=== PATIENT | male | born 1975 | race Caucasian/White ===

== ENCOUNTER 2022-07-08 19:22 | Emergency (ER) | payer BC ==
[2022-07-08] MEDS ORDERED: SODIUM CHLORIDE 0.9% 1,000 ML IV STA (19:50)
[2022-07-08 19:52] VITALS: TEMP 98.2
--- NOTE | 2022-07-08 20:17 | CT ---
EXAMINATION TYPE: CT abdomen pelvis wo con DATE OF EXAM: 07/08/2022 COMPARISON: None HISTORY: Left flank pain CT DLP: 1326.4 mGycm Automated exposure control for dose reduction was used. Images obtained from the diaphragm to the floor the pelvis with no contrast. The lung bases are clear. No pleural effusion. Heart size is normal. No pericardial effusion. Liver spleen appear intact. There are clips from gastric bariatric surgery. No pancreatic mass. Gallb ladder is intact. There is some increased density in the dependent gallbladder that could be small ga llstones. The bile ducts are not dilated. There is no adrenal mass. The left kidney is slightly enlarged. There is left-sided mild hydronephros is. There are multiple left-sided renal calculi measuring up to 11 mm. There is mild left-sided periu reteral edema. There is obstructing calculus in the lower left ureter that measures 5 mm. The bladder is almost empty. No evidence of a bladder mass. Right kidney shows no sign of obstruction. There is a 4 mm calculus in the posterior right kidney. No retroperitoneal adenopathy. No inguinal hernia. No free fluid in the pelvis. No pelvic mass. Appendix is inferior and appears nor mal. There is no mesenteric edema. No ascites or free air. No sign of a bowel obstruction. The lumbar vertebra show normal alignment. There is narrowing at L3-4 disc space with spurring. The p osterior elements are intact. No compression fracture. Bony pelvis is intact. The hip joints are inta ct. IMPRESSION: Obstructing calculus in the lower left ureter with left-sided hydronephrosis and hydroureter. Multipl e large left renal calculi. Small nonobstructing right renal calculus. Normal appendix.
[2022-07-08 20:34] LABS: Appearance,Urine Clear (Clear); Bilirubin,Urine Negative (Negative); Blood,Urine Large (Negative); Calcium Oxalate Crystals,Urine Few /hpf; Color,Urine Yellow; Glucose,Urine (UA) Negative (Negative); Hyaline Casts,Urine 1 /lpf (0-2); Ketones,Urine Negative (Negative); Leukocyte Esterase,Urine Negative (Negative); Mucus,Urine Occasional /hpf; Nitrite,Urine Negative (Negative); PH, Urine 5.5 (5.0-8.0); Protein,Urine 1+ (Negative); RBC,Urine >182 /hpf (0-5); Specific Gravity,Urine 1.026 (1.001-1.035); WBC,Urine 6 /hpf (0-5)
[2022-07-08] MEDS ORDERED: ONDANSETRON 4 MG/2 ML VIAL IVP STA (20:45)
[2022-07-08] MEDS ORDERED: KETOROLAC 15 MG/ML 1 ML VIAL IVP STA (20:45)
[2022-07-08] MEDS ORDERED: TAMSULOSIN 0.4 MG CAP.ER.24H PO STA (20:45)
[2022-07-08] MEDS ORDERED: MORPHINE SULFATE 4 MG/ML SYRINGE IV STA ×2 (20:45→22:10)
--- NOTE | 2022-07-08 20:49 | ED ---
Abdominal Pain HPI - General Chief Complaint: Abdominal Pain Stated Complaint: Abd Pain Time Seen by Provider: 07/08/22 19:49 Source: patient, RN notes reviewed Mode of arrival: ambulatory Limitations: no limitations - History of Present Illness Initial Comments: Patient presents with left flank pain that started about 4 PM. Patient states it started quite suddenly. Sharp in nature. It waxes and wanes in intensity. Radiates around the left flank and into the groin. No hematuria. No fever. No chest pain or shortness of breath. Patient does have a history of kidney stones. No headache, no fever or chills, no changes in vision or hearing, no sore throat or difficulty with speech, no neck pain, no chest pain or shortness of breath, no abdominal pain, no nausea or vomiting, no changes in urination or bowel movements, no numbness or tingling, no extremity pain, no skin rashes or lesions. Past medical, surgical, social, and family history reviewed. MD Complaint: flank pain - Related Data Previous Rx's Medication Instructions Recorded HYDROcodone/APAP 5-325MG [[place] 1 tab PO Q6HR PRN 3 Days #12 tab 07/08/22 5-325] Ibuprofen [Motrin] 600 mg PO Q8HR PRN #6 tab 07/08/22 Tamsulosin [Flomax] 0.4 mg PO DAILY #10 cap 07/08/22 Allergies Allergy/AdvReac Type Severity Reaction Status Date / Time No Known Allergies Allergy Verified 07/08/22 19:47 Review of Systems ROS Statement: Those systems with pertinent positive or pertinent negative responses have been documented in the HPI. ROS Other: All systems not noted in ROS Statement are negative. Past Medical History Additional Past Medical History / Comment(s): kidney stone History of Any Multi-Drug Resistant Organisms: None Reported Additional Past Surgical History / Comment(s): Gastric bypass, Valve replacement Past Psychological History: No Psychological Hx Reported Past Alcohol Use History: None Reported Past Drug Use History: None Reported General Exam Limitations: no limitations General appearance: alert, in distress Head exam: Present: atraumatic, normocephalic, normal inspection Eye exam: Present: normal appearance, PERRL, EOMI. Absent: scleral icterus, conjunctival injection, periorbital swelling ENT exam: Present: normal exam, mucous membranes moist Neck exam: Present: normal inspection. Absent: tenderness, meningismus, lymphadenopathy Respiratory exam: Present: normal lung sounds bilaterally. Absent: respiratory distress, wheezes, rales, rhonchi, stridor Cardiovascular Exam: Present: regular rate, normal rhythm, normal heart sounds. Absent: systolic murmur, diastolic murmur, rubs, gallop, clicks GI/Abdominal exam: Present: soft, normal bowel sounds. Absent: distended, tenderness, guarding, rebound, rigid Extremities exam: Present: normal inspection, full ROM, normal capillary refill. Absent: tenderness, pedal edema, joint swelling, calf tenderness Back exam: Present: normal inspection, full ROM, CVA tenderness (L). Absent: CVA tenderness (R) Neurological exam: Present: alert, oriented X3, CN II-XII intact Psychiatric exam: Present: normal affect, normal mood Skin exam: Present: warm, dry, intact, normal color. Absent: rash Course Vital Signs 07/08/22 19:48 Temperature 98.2 F Pulse Rate 69 Respiratory 16 Rate Blood Pressure 147/88 O2 Sat by Pulse 98 Oximetry - Reevaluation(s) Reevaluation #1: 07/08/22 22:11 Medical record is reviewed Symptoms are mildly improved, patient still having quite a bit of pain. Patient is informed of results and questions answered Patient in no distress Reevaluation #2: 07/08/22 23:10 Medical record is reviewed Symptoms are improved here in the emergency department Patient is informed of results and questions answered Patient in no distress Medical Decision Making - Medical Decision Making Computed tomography scan shows evidence of hydronephrosis and hydroureter on the left. There is a distal left ureteral stone that measures 5 mm. Patient has numerous intrarenal stones measuring up to 11 mm. Patient be treated with Flomax, pain medication, ketorolac, patient will require urology follow-up. Patient is from [place]. Patient will likely follow-up with his urologist there. Patient currently in this areaworking in [place]. Patient was told to return to the ER for any signs or symptoms worsen. Told to return immediately if any other problems arise. All questions answered. Treatment plan discussed. Patient in agreement Every effort has been made to ensure accuracy of this dictation. However, due to the limitations of electronic medical records and dictation devices, errors in charting still occur. Supervising physicians Dr. Bayudan - Lab Data Result diagrams: 07/08/22 20:57 07/08/22 20:57 Lab Results 07/08/22 07/08/22 07/08/22 Range/Units 20:06 20:57 20:57 WBC 16.9 H (3.8-10.6) k/uL RBC 5.32 (4.30-5.90) m/uL Hgb 15.7 (13.0-17.5) gm/dL Hct 44.8 (39.0-53.0) % MCV 84.2 (80.0-100.0) fL MCH 29.6 (25.0-35.0) pg MCHC 35.1 (31.0-37.0) g/dL RDW 14.1 (11.5-15.5) % Plt Count 196 (150-450) k/uL MPV 8.8 Neutrophils % 83 % Lymphocytes % 9 % Monocytes % 6 % Eosinophils % 1 % Basophils % 0 % Neutrophils # 14.0 H (1.3-7.7) k/uL Lymphocytes # 1.6 (1.0-4.8) k/uL Monocytes # 0.9 (0-1.0) k/uL Eosinophils # 0.1 (0-0.7) k/uL Basophils # 0.1 (0-0.2) k/uL Sodium 138 (137-145) mmol/L Potassium 4.1 (3.5-5.1) mmol/L Chloride 102 (98-107) mmol/L Carbon Dioxide 25 (22-30) mmol/L Anion Gap 11 mmol/L BUN 15 (9-20) mg/dL Creatinine 1.26 H (0.66-1.25) mg/dL Est GFR (CKD-EPI)AfAm 77 (>60 ml/min/1.73 sqM) Est GFR (CKD-EPI)NonAf 67 (>60 ml/min/1.73 sqM) Glucose 117 H (74-99) mg/dL Calcium 9.3 (8.4-10.2) mg/dL Total Bilirubin 0.8 (0.2-1.3) mg/dL AST 33 (17-59) U/L ALT 45 (4-49) U/L Alkaline Phosphatase 71 (38-126) U/L Total Protein 7.3 (6.3-8.2) g/dL Albumin 4.6 (3.5-5.0) g/dL Urine Color Yellow Urine Appearance Clear (Clear) Urine pH 5.5 (5.0-8.0) Ur Specific [place] 1.026 (1.001-1.035) Urine Protein 1+ H (Negative) Urine Glucose (UA) Negative (Negative) Urine Ketones Negative (Negative) Urine Blood Large H (Negative) Urine Nitrite Negative (Negative) Urine Bilirubin Negative (Negative) Urine Urobilinogen 3.0 (<2.0) mg/dL Ur Leukocyte Esterase Negative (Negative) Urine RBC >182 H (0-5) /hpf Urine WBC 6 H (0-5) /hpf Calcium Oxalate Crystal Few H (None) /hpf Hyaline Casts 1 (0-2) /lpf Urine Mucus Occasional H (None) /hpf - Radiology Data Radiology results: report reviewed, image reviewed Disposition Clinical Impression: Ureterolithiasis, Renal colic on left side, Nephrolithiasis Disposition: HOME SELF-CARE Condition: Stable Additional Instructions: Follow-up with your regular physician as directed. Return to the ER immediately if any symptoms worsen, new symptoms arise, or any other problems develop. Yo ur kidney function was not quite optimal. Only take the ibuprofen for 3 days. Then follow-up with your regular physician or the urologist. Kidney function will need to be monitored. Is patient prescribed a controlled substance at d/c from ED?: Yes When asked, does pt state using other controlled substances?: No If prescribed controlled substance>3 days was MAPS reviewed?: Prescribed <3 Days If opioid is for acute pain is fill amount 7 days or less?: Yes Referrals: Pee Molina MD [STAFF PHYSICIAN] - 07/11/22 Time of Disposition: 23:15
[2022-07-08 21:01] LABS: Basophils # (A) 0.1 k/uL (0-0.2); Basophils % (A) 0 %; Eosinophils # (A) 0.1 k/uL (0-0.7); Eosinophils % (A) 1 %; HCT 44.8 % (39.0-53.0); HGB 15.7 gm/dL (13.0-17.5); Lymphocytes # (A) 1.6 k/uL (1.0-4.8); Lymphocytes % (A) 9 %; MCH 29.6 pg (25.0-35.0); MCHC 35.1 g/dL (31.0-37.0); MCV 84.2 fL (80.0-100.0); Mean Platelet Volume 8.8; Monocytes # (A) 0.9 k/uL (0-1.0); Monocytes % (A) 6 %; Neutrophils % (A) 83 %; Platelet Count 196 k/uL (150-450); RBC 5.32 m/uL (4.30-5.90); RDW 14.1 % (11.5-15.5); WBC 16.9 k/uL (3.8-10.6)
[2022-07-08 21:11] LABS: Albumin 4.6 g/dL (3.5-5.0); Calcium 9.3 mg/dL (8.4-10.2); Potassium 4.1 mmol/L (3.5-5.1); Total Bilirubin 0.8 mg/dL (0.2-1.3); Total Protein 7.3 g/dL (6.3-8.2)
[2022-07-08] MEDS ORDERED: HYDROcodone/APAP 5-325MG 1 EACH TAB PO STA (22:10)
[2022-07-08] MEDS ORDERED: IBUPROFEN 600 MG STARTER PACK 4 TAB BTL PO STA (23:09)
[2022-07-08] MEDS ORDERED: ACET/COD 300 MG/30 MG STARTER PACK 6 TAB BTL PO STA (23:09)
[2022-07-08 23:27] VITALS: BP 114/57; PULSE 62; RESP 18
== END 2022-07-08 23:27 | disposition home or self-care (01) ==
LOC: EC 19:22
DX: N20.1 Calculus of ureter (principal); N20.0 Calculus of kidney; N23 Unspecified renal colic
CPT/HCPCS: 36415; 80053; 85025; 81001; 74176; 99284; 96374; 96375; 96376 ×2; 96361; J2270; J2405; J1885